=== PATIENT | female | born 1935 | race Caucasian/White ===

== ENCOUNTER 2017-01-04 08:49 | Outpatient (CLI) | payer MEDICARE, BC | END 2017-01-04 08:50 | disposition home or self-care (01) | DX: E78.2 Mixed hyperlipidemia (principal); R94.5 Abnormal results of liver function studies ==

== ENCOUNTER 2017-02-27 22:01 | Outpatient (CLI) | payer MEDICARE, BC | END 2017-02-27 22:02 | disposition home or self-care (01) | DX: E78.2 Mixed hyperlipidemia (principal); Z79.899 Other long term (current) drug therapy ==

== ENCOUNTER 2017-03-15 23:51 | Emergency (ER) | payer MEDICARE, BC ==
[2017-03-16] MEDS ORDERED: LIDOCAINE VISCOUS 2% 15 ML UDC MM STA (00:14)
[2017-03-16] MEDS ORDERED: MAG HYDROX/AL HYDROX/SIMETH 30 ML UDC PO STA (00:14)
[2017-03-16] MEDS ORDERED: MAG HYDROX/AL HYDROX/SIMETH 30 ML UDC ONE (00:17)
[2017-03-16] MEDS ORDERED: LIDOCAINE VISCOUS 2% 15 ML UDC MM ONE (00:17)
[2017-03-16 00:32] LABS: BASOPHILS # (AUTO) 0.1 10^3/uL (0.0-0.1); EOSINOPHILS # (AUTO) 0.1 10^3/uL (0.0-0.7); EOSINOPHILS % (AUTO) 2.2 %; HCT - HEMATOCRIT 42.3 % (37.0-47.0); HGB - HEMOGLOBIN 14.1 g/dL (12.0-16.0); LYMPHOCYTES # (AUTO) 1.6 10^3/uL (1.5-3.5); MEAN CORPUSCULAR HEMOGLOBIN 30.8 pg (27.0-31.0); MEAN CORPUSCULAR HGB CONC 33.3 g/dL (32.0-36.0); MEAN CORPUSCULAR VOLUME 92.2 fL (81.0-99.0); MEAN PLATELET VOLUME 8.1 fL (7.9-10.8); MONOCYTES # (AUTO) 0.7 10^3/uL (0.0-1.0); MONOCYTES % (AUTO) 11.6 %; NEUTROPHILS # (AUTO) 3.3 10^3/uL (1.5-6.6); NEUTROPHILS % (AUTO) 57.2 %; NUCLEATED RED BLOOD CELLS AUTO 0.1 /100WBC; RED BLOOD COUNT 4.59 10^6/uL (4.20-5.40); RED CELL DISTRIBUTION WIDTH 12.1 % (12.0-15.0); UNCORRECTED WHITE BLOOD COUNT 5.8 x10^3/uL; WHITE BLOOD COUNT 5.8 x10^3/uL (4.8-10.8)
[2017-03-16 00:39] LABS: BILIRUBIN,URINE NEGATIVE (NEGATIVE); PH,URINE 6.5 PH (5.0-7.5)
[2017-03-16 00:40] LABS: UA w/ MICROSCOPIC CHARGE YES
[2017-03-16 00:41] LABS: PT - PROTHROMBIN TIME 11.8 secs (9.9-12.6)
[2017-03-16 00:44] LABS: ALBUMIN/GLOBULIN RATIO 1.3 (1.0-2.2); BILIRUBIN,TOTAL 0.9 mg/dL (0.2-1.0); CREATININE 0.7 mg/dL (0.4-1.0); POTASSIUM 3.4 mmol/L (3.5-5.0); TOTAL PROTEIN 7.9 g/dL (6.7-8.2)
[2017-03-16 00:48] LABS: PARTIAL THROMBOPLASTIN TIME 27.4 secs (24.9-33.3)
[2017-03-16 00:49] LABS: UR CULTURE IF IND INDICATED; WBC,URINE 0-3 /HPF (0-5)
--- NOTE | 2017-03-16 01:00 | XRAY Preliminary Report ---
Exam: XR Chest 1 View IMPRESSION: 1. Postoperative changes. No acute abnormality seen. [facility] SITE ID: [id number]
--- NOTE | 2017-03-16 01:02 | XRAY Report ---
EXAM: CHEST RADIOGRAPHY EXAM DATE: 03/16/2017 12:43 AM. CLINICAL HISTORY: Chest pain. COMPARISON: 07/15/2016. TECHNIQUE: 1 view. FINDINGS: Lungs/Pleura: No alveolar consolidation or pleural effusion. No pneumothorax. Mediastinum: Heart size is probably normal. Tortuous ectatic atherosclerotic aorta. Other: Median sternotomy and valve replacement. IMPRESSION: 1. Postoperative changes. No acute abnormality seen. [facility] Referring Provider Line: [phone] SITE ID: [id number]
[2017-03-16 02:37] VITALS: BP 137/69
--- NOTE | 2017-03-16 02:48 | ED Physician Documentation ---
PD HPI ABD PAIN - Stated complaint Stated Complaint: R FLANK PX - Chief complaint Chief Complaint: General - History obtained from History obtained from: Patient - History of Present Illness Timing - onset: How many days ago (4) Timing - duration: Days Timing - details: Gradual onset, Waxing and waning Quality: Cramping, Aching Location: LUQ Radiation: Chest Worsened by: Eating, Breathing, Position Associated symptoms: No: Fever, Nausea, Vomiting, Hematemesis, Diarrhea, Constipation Similar symptoms before: Work up / diagnostics, Treatment Recently seen: Not recently seen - Additional information Additional information: Patient is an 81 year old female presenting to the emergency department for abdominal pain. patient states that for the last few days she has had some epigastric pain. it is consistent with her gerd pain. Patient states that tonight it wrapped around to the left side of her abdomen. Patient lives at home alone and became nervous so she came out to the emergency department for evaluation. Upon initial evaluation in the emergency department patient was chest pain free. Review of Systems Constitutional: denies: Fever, Chills Eyes: denies: Loss of vision, Decreased vision Ears: denies: Ear pain, Drainage/discharge Nose: denies: Rhinorrhea / runny nose, Congestion Throat: denies: Dental pain / toothache, Oral lesions / sores Cardiac: reports: Chest pain / pressure. denies: Palpitations, Calf pain Respiratory: denies: Dyspnea, Cough, Wheezing GI: reports: Abdominal Pain. denies: Abdominal Swelling, Nausea, Vomiting, Constipation : denies: Dysuria, Frequency, Hesitancy Skin: denies: Rash, Lesions, Abrasion (s) Musculoskeletal: denies: Neck pain, Back pain, Extremity pain, Joint pain Neurologic: denies: Generalized weakness, Focal weakness, Numbness, Syncope, LOC Psychiatric: reports: Anxiety. 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 Cardiovascular: Valve replacement - Present Medications Home Medications: Ambulatory Orders Medication Instructions Recorded Confirmed Aspirin [Children's Aspirin] 81 mg PO DAILY 08/15/13 07/15/16 Atorvastatin Calcium [Lipitor] 40 mg PO DAILY 08/15/13 07/15/16 Calcium Carb, Citrate/Vit D3 1 each PO QID 08/15/13 07/15/16 [Citracal + D ER Tablet] Cholecalciferol (Vitamin D3) 400 unit PO TID 08/15/13 07/15/16 [Vitamin D-3] Metoprolol Tartrate [Lopressor] 25 mg PO BID 08/15/13 07/15/16 Multivitamin [Multivitamins] 1 each PO DAILY 08/15/13 07/15/16 hydroCHLOROthiazide [Hydrodiuril] 12.5 mg PO DAILY 08/15/13 07/15/16 Sulfamethoxazole/Trimethoprim 1 each PO BID #10 tablet 07/16/16 [Sulfamethoxazole-Tmp Ds Tablet] - Allergies Allergies/Adverse Reactions: Allergies Allergy/AdvReac Type Severity Reaction Status Date / Time losartan [Losartan] Allergy Intermediate cough Verified 07/15/16 22:58 Estrogens Allergy Mild Diaphoresis Verified 07/15/16 22:58 felodipine Allergy Mild Respiratory Verified 07/15/16 22:58 lisinopril Allergy Mild Respiratory Verified 07/15/16 22:58 - Social History Does the pt smoke?: No Smoking Status: Never smoker Does the pt drink ETOH?: Yes Does the pt have substance abuse?: No - Immunizations Immunizations are current?: Yes - POLST Patient has POLST: Yes PD ED PE NORMAL - General General: Alert and oriented X 3, No acute distress - HEENT HEENT: Atraumatic, PERRL, Pharynx benign - Neck Neck: Supple, no meningeal sign, No JVD - Cardiac Cardiac: RRR, No murmur - Respiratory Respiratory: No respiratory distress, Clear bilaterally - Derm Derm: Normal color, Warm and dry, No rash - Extremities Extremities: No deformity, No tenderness to palpate, Normal ROM s pain, No edema , No calf tenderness / cord - Neuro Neuro: Alert and oriented X 3, No motor deficit, No sensory deficit PD ED PE EXPANDED - General General: Anxious - Abdomen Abdomen: Tender to palpation, Epigastric. No: Rebound, Guarding Results - Vitals Vitals: Vital Signs - 24 hr 03/16/17 03/16/17 03/16/17 00:00 00:44 02:36 Temperature 36.2 C L Heart Rate 69 66 60 Respiratory 16 16 20 Rate Blood Pressure 147/62 H 150/73 H 137/69 H O2 Saturation 99 96 99 Oxygen O2 Source Room air - EKG (time done) 0017 Rate: Rate (enter#) (71) Rhythm: NSR [place]: Normal Intervals: Normal [place] Compare to prior EKG: Unchanged from prior EKG - Labs Labs: Laboratory Tests 03/16/17 03/16/17 03/16/17 00:20 00:20 00:20 WBC 5.8 RBC 4.59 Hgb 14.1 Hct 42.3 MCV 92.2 MCH 30.8 MCHC 33.3 RDW 12.1 Plt Count 306 MPV 8.1 Neut # 3.3 Lymph # 1.6 [place] # 0.7 Eos # 0.1 Baso # 0.1 Absolute Nucleated RBC 0.01 Nucleated RBCs 0.1 PT 11.8 INR 1.0 APTT 27.4 Sodium 132 L Potassium 3.4 L Chloride 96 L Carbon Dioxide 25 Anion Gap 11.0 BUN 14 Creatinine 0.7 Estimated GFR (MDRD) 80 L Glucose 120 H Calcium 10.0 Total Bilirubin 0.9 AST 56 H ALT 50 Alkaline Phosphatase 73 Troponin I Total Protein 7.9 Albumin 4.5 Globulin 3.4 Albumin/Globulin Ratio 1.3 Lipase 33 Urine Color Urine Clarity Urine pH Ur Specific [place] Urine Protein Urine Glucose (UA) Urine Ketones Urine Occult Blood Urine Nitrite Urine Bilirubin Urine Urobilinogen Ur Leukocyte Esterase Urine RBC Urine WBC Ur Squamous Epith Cells Urine Bacteria Urine Casts Ur Microscopic Review Urine Culture Comments 03/16/17 03/16/17 03/16/17 00:20 00:24 02:00 WBC RBC Hgb Hct MCV MCH MCHC RDW Plt Count MPV Neut # Lymph # [place] # Eos # Baso # Absolute Nucleated RBC Nucleated RBCs PT INR APTT Sodium Potassium Chloride Carbon Dioxide Anion Gap BUN Creatinine Estimated GFR (MDRD) Glucose Calcium Total Bilirubin AST ALT Alkaline Phosphatase Troponin I < 0.04 < 0.04 Total Protein Albumin Globulin Albumin/Globulin Ratio Lipase Urine Color YELLOW Urine Clarity CLEAR Urine pH 6.5 Ur Specific [place] 1.010 Urine Protein NEGATIVE Urine Glucose (UA) NEGATIVE Urine Ketones NEGATIVE Urine Occult Blood TRACE-INTA Urine Nitrite NEGATIVE Urine Bilirubin NEGATIVE Urine Urobilinogen 0.2 (NORMAL) Ur Leukocyte Esterase TRACE H Urine RBC 0-5 Urine WBC 0-3 Ur Squamous Epith Cells FEW Squamous Urine Bacteria Few Urine Casts 3-5 Hyaline Casts Ur Microscopic Review INDICATED Urine Culture Comments INDICATED - Rads (name of study) chest x-ray Radiology: Final report received (post operative changes, no acute abnormality seen) PD MEDICAL DECISION MAKING - ED course Complexity details: reviewed old records, reviewed results, re-evaluated patient , considered differential, d/w patient ED course: Patient wsa seen and examined at bedside. patient was a little anxious but otherwise was well appearing. ekg was performed and was the same as previous ekg. labs were drawn and urine was collected. chest x-ray was performed and showed no acute findings. Patient's diagnostics remained unchanged from her baseline. Patient's second troponin remained negative. patient's pain was less likely cardiac in nature. patient had a follow up appointment in the morning. Patient required no further work up at thist time and was stable for discharge with outpatient follow up. Departure - Departure Disposition: 01 Home, Self Care Clinical Impression: GERD (gastroesophageal reflux disease) Condition: Good Instructions: ED GERD Follow-Up: Víctor Rios MD [Primary Care Provider] - Tomorrow Comments: Your diagnostics today were within normal limits. this indicates that it is less likely to be your heart. that being said it is only a snap shot in time. You should call your doctor today and let them know you were in the emergency department. You may required a follow up stress test. You should return to the emergency department for chest pain, shortness of breath, new worsening or uncontrollable symptoms. Discharge Date/Time: 03/16/17 03:01
== END 2017-03-16 03:01 | disposition home or self-care (01) ==
LOC: ED 23:51
DX: K21.9 Gastro-esophageal reflux disease without esophagitis (principal); I10 Essential (primary) hypertension; E78.00 Pure hypercholesterolemia, unspecified; Z79.82 Long term (current) use of aspirin
CPT/HCPCS: 36415; 71010; 80053; 81001; 83690; 84484; 85025; 85610; 85730; 87086; 93005; 93010; 99283; 99284; A9270; 81003

== ENCOUNTER 2017-04-23 16:46 | Outpatient (CLI) | payer MEDICARE, BC ==
--- NOTE | 2017-04-24 11:15 | XRAY Report ---
TWO-VIEW LEFT FEMUR: 04/23/2017 CLINICAL INDICATION: Pain. FINDINGS: Frontal and lateral views of the left femur demonstrate no evidence of fracture. Mild ost eoarthritis is noted in the hip and knee. Vascular calcifications are noted. IMPRESSION: MILD OSTEOARTHRITIS. NO EVIDENCE OF FRACTURE. JOB #: [id number] EXT JOB #:[id number]
== END 2017-04-23 16:47 | disposition home or self-care (01) ==
LOC: DI 16:46
PROVIDERS: ATTEND Internal Medicine
DX: M89.8X5 Other specified disorders of bone, thigh (principal); M16.12 Unilateral primary osteoarthritis, left hip; M17.12 Unilateral primary osteoarthritis, left knee

== ENCOUNTER 2017-07-03 11:13 | Outpatient (CLI) | payer MEDICARE, BC ==
[2017-07-03 13:39] LABS: BASOPHILS # (AUTO) 0.1 10^3/uL (0.0-0.1); BASOPHILS % (AUTO) 1.1 %; EOSINOPHILS % (AUTO) 0.5 %; HCT - HEMATOCRIT 38.6 % (37.0-47.0); HGB - HEMOGLOBIN 13.3 g/dL (12.0-16.0); LYMPHOCYTES # (AUTO) 1.3 10^3/uL (1.5-3.5); LYMPHOCYTES % (AUTO) 25.5 %; MEAN CORPUSCULAR HEMOGLOBIN 32.4 pg (27.0-31.0); MEAN CORPUSCULAR HGB CONC 34.5 g/dL (32.0-36.0); MEAN CORPUSCULAR VOLUME 93.9 fL (81.0-99.0); MEAN PLATELET VOLUME 8.7 fL (7.9-10.8); MONOCYTES # (AUTO) 0.4 10^3/uL (0.0-1.0); MONOCYTES % (AUTO) 8.4 %; NEUTROPHILS # (AUTO) 3.3 10^3/uL (1.5-6.6); NEUTROPHILS % (AUTO) 64.5 %; RED BLOOD COUNT 4.11 10^6/uL (4.20-5.40); UNCORRECTED WHITE BLOOD COUNT 5.1 x10^3/uL; WHITE BLOOD COUNT 5.1 x10^3/uL (4.8-10.8)
[2017-07-03 14:04] LABS: ALBUMIN/GLOBULIN RATIO 1.2 (1.0-2.2); BILIRUBIN,TOTAL 0.8 mg/dL (0.2-1.0); BUN - BLOOD UREA NITROGEN 11 mg/dL (6-20); CARBON DIOXIDE - CO2 24 mmol/L (21-32); CHLORIDE 96 mmol/L (101-111); CREATININE 0.7 mg/dL (0.4-1.0); GFR - MDRD 80 (>89); GLUCOSE 99 mg/dL (70-100); LDL CHOLESTEROL,DIRECT 70 mg/dL; POTASSIUM 3.5 mmol/L (3.5-5.0); SODIUM 132 mmol/L (135-145); TOTAL PROTEIN 7.6 g/dL (6.7-8.2)
== END 2017-07-03 11:14 | disposition home or self-care (01) ==
LOC: LAB.R 11:13
PROVIDERS: ATTEND Internal Medicine
DX: G45.9 Transient cerebral ischemic attack, unspecified (principal); E78.5 Hyperlipidemia, unspecified
CPT/HCPCS: 80053; 85025; 85651; 86140

== ENCOUNTER 2017-07-06 08:51 | Outpatient (CLI) | payer MEDICARE, BC | END 2017-07-06 08:52 | disposition critical access hospital (66) | LOC: EMS 08:51 | PROVIDERS: ATTEND Surgery | DX: M79.602 Pain in left arm (principal); R06.02 Shortness of breath; F41.9 Anxiety disorder, unspecified | CPT/HCPCS: A0425; A0427 ==

== ENCOUNTER 2017-07-06 09:02 | Emergency (ER) | payer MEDICARE, BC ==
--- NOTE | 2017-07-06 09:34 | ED Physician Documentation ---
PD HPI CHEST PAIN - Stated complaint Stated Complaint: LEFT ARM PAIN - Chief complaint Chief Complaint: Cardiac - History obtained from History obtained from: Patient - History of Present Illness Timing - onset: Last night Timing - onset during: Rest Timing - details: Now resolved Quality: Aching (left arm and back) Associated symptoms: No: Shortness of air, Diaphoresis, Nausea, Vomiting Recently seen: Clinic - Treatment prior to arrival Treatment prior to arrival: 4 baby aspirin - Additional information Additional information: The patient is an 82-year-old female who arrives via ambulance after she developed aching in her left arm this morning while in bed. She reports having similar aching in her left arm and back last night while doing light housework. She took 2 sublingual nitroglycerin and states that helped. She denies associated shortness of breath, nausea or vomiting. She reports having a similar aching in her left arm this morning, so called 911. She took 4 baby aspirin, and denies symptoms at the time of arrival in the emergency department. She denies having any chest pain or discomfort during these episodes. She admits to being anxious about the possibility of coronary artery disease, because her father of an CO at age 59. She was seen by her primary physician 2 days ago, and because of symptoms that suggested possible TIA, she was scheduled for cardiac echo and carotid duplex scan, which were scheduled for this morning. Review of Systems Constitutional: denies: Fever, Fatigue Ears: denies: Tinnitus/ringing Nose: denies: Congestion Throat: denies: Sore throat Cardiac: reports: Other (Dull aching of her left arm, radiating to her back.). denies: Chest pain / pressure, Palpitations Respiratory: denies: Dyspnea, Cough GI: denies: Abdominal Pain, Nausea, Vomiting : denies: Dysuria Skin: denies: Rash Musculoskeletal: denies: Neck pain, Extremity swelling Neurologic: denies: Focal weakness, Numbness, Headache PD PAST MEDICAL HISTORY - Past Medical History Cardiovascular: Hypertension, High cholesterol, Arrhythmia, Valve disorder Respiratory: None Endocrine/Autoimmune: None GI: GERD : None HEENT: None Psych: Anxiety Musculoskeletal: Fatigue Derm: None - Past Surgical History Past Surgical History: Yes General: Appendectomy, Hiatal hernia repair /CARD HAND: Oophrectomy Cardiovascular: Valve replacement - Present Medications Home Medications: Ambulatory Orders Medication Instructions Recorded Confirmed Aspirin [Children's Aspirin] 81 mg PO DAILY 08/15/13 07/06/17 Atorvastatin Calcium [Lipitor] 20 mg PO DAILY 08/15/13 07/06/17 Cholecalciferol (Vitamin D3) 400 unit PO TID 08/15/13 07/06/17 [Vitamin D-3] Metoprolol Tartrate [Lopressor] 25 mg PO BID 08/15/13 07/06/17 Multivitamin [Multivitamins] 1 each PO DAILY 08/15/13 07/06/17 hydroCHLOROthiazide [Hydrodiuril] 12.5 mg PO DAILY 08/15/13 07/06/17 - Allergies Allergies/Adverse Reactions: Allergies Allergy/AdvReac Type Severity Reaction Status Date / Time losartan [Losartan] Allergy Intermediate cough Verified 07/06/17 09:13 Estrogens Allergy Mild Diaphoresis Verified 07/06/17 09:13 felodipine Allergy Mild Respiratory Verified 07/06/17 09:13 lisinopril Allergy Mild Respiratory Verified 07/06/17 09:13 - Social History Does the pt smoke?: No Smoking Status: Never smoker Does the pt drink ETOH?: Yes Does the pt have substance abuse?: No - Immunizations Immunizations are current?: Yes - POLST Patient has POLST: Yes PD ED PE NORMAL - Vitals Vital signs reviewed: Yes (systolic hypertension initially.) - General General: Alert and oriented X 3, Well developed/nourished - HEENT HEENT: Atraumatic, EOMI, Pharynx benign - Neck Neck: No adenopathy, No JVD - Cardiac Cardiac: RRR, No murmur - Respiratory Respiratory: No respiratory distress, Clear bilaterally, Other (no chest wall tenderness to palpation.) - Abdomen Abdomen: Soft, Non tender - Back Back: No CVA TTP - Derm Derm: No rash - Extremities Extremities: No edema, No calf tenderness / cord - Neuro Neuro: Alert and oriented X 3, No motor deficit, No sensory deficit, Normal speech Results - Vitals Vitals: Oxygen O2 Source Room air - EKG (time done) 09:20 Rate: Rate (enter#) (65) Rhythm: NSR [place]: Normal Intervals: Normal [place] QRS: Normal Ischemia: Normal ST segments Compare to prior EKG: Unchanged from prior EKG Computer interpretation: Agree with computer - Labs Labs: Laboratory Tests 07/06/17 07/06/1707/06/17 09:50 09:50 09:50 WBC 4.9 RBC 4.12 L Hgb 13.0 Hct 37.7 MCV 91.7 MCH 31.6 H MCHC 34.4 RDW 12.4 Plt Count 278 MPV 7.9 Neut # 3.3 Lymph # 1.1 L [place] # 0.4 Eos # 0.0 Baso # 0.0 Absolute Nucleated RBC 0.00 Nucleated RBCs 0.0 Sodium 132 L Potassium 3.5 Chloride 95 L Carbon Dioxide 28 Anion Gap 9.0 BUN 11 Creatinine 0.6 Estimated GFR (MDRD) 96 Glucose 110 H Calcium 9.8 Total Bilirubin 0.7 AST 39 ALT 28 Alkaline Phosphatase 62 Troponin I < 0.04 Total Protein 7.6 Albumin 4.3 Globulin 3.3 Albumin/Globulin Ratio 1.3 Lipase 35 Urine Color Urine Clarity Urine pH Ur Specific [place] Urine Protein Urine Glucose (UA) Urine Ketones Urine Occult Blood Urine Nitrite Urine Bilirubin Urine Urobilinogen Ur Leukocyte Esterase Ur Microscopic Review Urine Culture Comments 07/06/17 11:00 WBC RBC Hgb Hct MCV MCH MCHC RDW Plt Count MPV Neut # Lymph # [place] # Eos # Baso # Absolute Nucleated RBC Nucleated RBCs Sodium Potassium Chloride Carbon Dioxide Anion Gap BUN Creatinine Estimated GFR (MDRD) Glucose Calcium Total Bilirubin AST ALT Alkaline Phosphatase Troponin I Total Protein Albumin Globulin Albumin/Globulin Ratio Lipase Urine Color YELLOW Urine Clarity CLEAR Urine pH 7.0 Ur Specific [place] 1.010 Urine Protein NEGATIVE Urine Glucose (UA) NEGATIVE Urine Ketones 15 H Urine Occult Blood NEGATIVE Urine Nitrite NEGATIVE Urine Bilirubin NEGATIVE Urine Urobilinogen 0.2 (NORMAL) Ur Leukocyte Esterase NEGATIVE Ur Microscopic Review NOT INDICATED Urine Culture Comments NOT INDICATED - Rads (name of study) Portable CXR Radiology: Prelim report reviewed, EMP read contemporaneously, See rad report ( Mild pulmonary vascular congestion. No focal pulmonary consolidation.) PD MEDICAL DECISION MAKING - ED course Complexity details: reviewed old records, reviewed results, re-evaluated patient , considered differential, d/w patient ED course: The patient's presentation is atypical for cardiac etiology for her left arm aching. I suspect anxiety is a significant factor in the patient's response to the vague symptoms. Her EKG reveals no ischemic abnormalities, and her cardiac enzymes are negative. She was scheduled for outpatient cardiac echo and carotid duplex scan this morning. She has missed the scheduled appointment for the cardiac echo, but is still able to make the appointment for the carotid duplex scan. She wishes to proceed with discharge in order to make her outpatient appointment. I discussed with her the importance of follow-up with her primary physician, as well as potentially worrisome signs or symptoms that should prompt reevaluation in the emergency department. Departure - Departure Disposition: 01 Home, Self Care Clinical Impression: Anxiety Chest pain Qualifiers: Chest pain type: unspecified Qualified Code(s): R07.9 - Chest pain, unspecified Condition: Stable Instructions: ED Chest Pain Atypical Unkn Cause, ED Stress React Follow-Up: Víctor Rios MD [Primary Care Provider] - Comments: Go directly to the credit front office developer at radiology so you can get the carotid Doppler study as scheduled today. Follow-up with Dr. Rios within 1 week. Call to schedule appointment. Return to the emergency department if you develop recurrent or increasing chest pain, shortness of breath, or otherwise worsening symptoms. Discharge Date/Time: 07/06/17 11:10
[2017-07-06 09:57] LABS: BASOPHILS % (AUTO) 0.8 %; EOSINOPHILS % (AUTO) 0.5 %; HCT - HEMATOCRIT 37.7 % (37.0-47.0); LYMPHOCYTES # (AUTO) 1.1 10^3/uL (1.5-3.5); LYMPHOCYTES % (AUTO) 23.2 %; MEAN CORPUSCULAR HEMOGLOBIN 31.6 pg (27.0-31.0); MEAN CORPUSCULAR HGB CONC 34.4 g/dL (32.0-36.0); MEAN CORPUSCULAR VOLUME 91.7 fL (81.0-99.0); MEAN PLATELET VOLUME 7.9 fL (7.9-10.8); MONOCYTES # (AUTO) 0.4 10^3/uL (0.0-1.0); NEUTROPHILS # (AUTO) 3.3 10^3/uL (1.5-6.6); NEUTROPHILS % (AUTO) 66.5 %; RED BLOOD COUNT 4.12 10^6/uL (4.20-5.40); RED CELL DISTRIBUTION WIDTH 12.4 % (12.0-15.0); UNCORRECTED WHITE BLOOD COUNT 4.9 x10^3/uL; WHITE BLOOD COUNT 4.9 x10^3/uL (4.8-10.8)
--- NOTE | 2017-07-06 10:06 | XRAY Preliminary Report ---
Exam: XR Chest 1 View IMPRESSION: Mild pulmonary vascular congestion. No focal pulmonary consolidation. [facility] SITE ID: [id number]
--- NOTE | 2017-07-06 10:08 | XRAY Report ---
EXAM: CHEST RADIOGRAPHY EXAM DATE: 07/06/2017 09:54 AM. CLINICAL HISTORY: Chest pain. COMPARISON: 03/16/2017. TECHNIQUE: 1 view. FINDINGS: Lungs/Pleura: No focal consolidation. No pleural effusion or pneumothorax. Mild pulmonary vascular co ngestion. Mediastinum: Within exam limitations, cardiomediastinal contour is normal. Aortic atherosclerosis. Other: Status post median sternotomy. IMPRESSION: Mild pulmonary vascular congestion. No focal pulmonary consolidation. [facility] Referring Provider Line: [phone] SITE ID: [id number]
[2017-07-06 10:17] LABS: ALBUMIN/GLOBULIN RATIO 1.3 (1.0-2.2); BILIRUBIN,TOTAL 0.7 mg/dL (0.2-1.0); CALCIUM 9.8 mg/dL (8.5-10.3); CREATININE 0.6 mg/dL (0.4-1.0); POTASSIUM 3.5 mmol/L (3.5-5.0); TOTAL PROTEIN 7.6 g/dL (6.7-8.2)
[2017-07-06 11:21] LABS: BILIRUBIN,URINE NEGATIVE (NEGATIVE)
[2017-07-06 11:27] LABS: UA CHARGE (STRIP ONLY) YES; UR CULTURE IF IND NOT INDICATED
[2017-07-06 11:30] VITALS: BP 127/59
== END 2017-07-06 11:10 | disposition home or self-care (01) ==
LOC: EDUNIT# → ED 09:02
DX: F41.9 Anxiety disorder, unspecified (principal); R07.9 Chest pain, unspecified; G45.9 Transient cerebral ischemic attack, unspecified; I10 Essential (primary) hypertension; Z95.2 Presence of prosthetic heart valve; Z79.82 Long term (current) use of aspirin
CPT/HCPCS: 36415; 71010; 80053; 81001; 81003; 83690; 84484; 85025; 87086; 93005; 93306; 93880; 99284

== ENCOUNTER 2017-07-06 11:15 | Outpatient (CLI) | payer MEDICARE, BC ==
--- NOTE | 2017-07-06 14:51 | Ultrasound Report ---
CAROTID DUPLEX: 07/06/2017 CLINICAL INDICATION: TIA. TECHNIQUE: Real-time sonographic vascular imaging was performed by the redevelopment specialist through the carotid arteries utilizing both color-flow and Doppler spectral analysis. Multiple business representative static images were saved for review. Vessel PSV cm/sec 2D Plaque Estimate % EDV cm/sec ICA/CCA PSV % Stenosis RCCA Prox 82.9 -- RCCA Dist 82.9 19 RECA 93 -- RT BULB 81 -- 16 0.97 ZAC Prox 87 -- 15 1.04 ZAC Mid 79 -- 12 0.95 ZAC Dist 73 -- 19 0.87 RVA 42 RVA flow direction: Antegrade. Vessel PSV cm/sec 2D Plaque Estimate % EDV cm/sec ICA/CCA PSV % Stenosis LCCA Prox 67 -- LCCA Dist 78 19 LECA 72 -- LFT BULB 80 -- 17 1.02 LICA Prox 67 -- 17 0.85 LICA Mid 53 -- 16 0.67 LICA Dist 90 -- 27 1.15 LVA 38 LVA flow direction: Antegrade. Velocity criteria are extrapolated from diameter data as defined by the Society of Radiologists in Ultrasound Consensus Conference Radiology 2003; 229; 340-346. Degree of Stenosis % ICA PSV cm/sec Plaque Estimate % ICA/CCA RSV Ratio ICA EDV cm/sec Normal < 125 None < 2.0 < 40 <50 < 125 < 50 < 2.0 < 40 50-69 125 - 130 >/= 50 2.0 - 4.0 40 - 100 >/= 70 but less than near occlusion > 230 >/= 50 > 4.0 > 100 Near occlusion High, low, or undetectable Visible lumen Variable Variable Total occlusion Undetectable No detectable lumen Not applicable Not applicable FINDINGS RIGHT: There is mild calcified plaquing in the right carotid bifurcation, without evidence of a focal hemodynamically significant stenosis. LEFT: There is mild calcified plaquing in the left carotid bifurcation, without evidence of a focal hemodynamically significant stenosis. The vertebral arteries demonstrate antegrade flow bilaterally. IMPRESSION: NO EVIDENCE OF A HEMODYNAMICALLY SIGNIFICANT CAROTID STENOSIS. MTDD
== END 2017-07-06 11:16 | disposition home or self-care (01) ==
LOC: DI 11:15
PROVIDERS: ATTEND Internal Medicine
DX: G45.9 Transient cerebral ischemic attack, unspecified (principal); I51.7 Cardiomegaly; Z95.3 Presence of xenogenic heart valve
CPT/HCPCS: 93306; 93880

== ENCOUNTER 2017-09-14 15:24 | Outpatient (CLI) | payer MEDICARE, BC ==
--- NOTE | 2017-09-14 16:29 | XRAY Preliminary Report ---
Exam: XR SHOULDER 2 VIEW RT IMPRESSION: 1. 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 2. Otherwise, unremarkable exam. [facility] SITE ID: [id number]
--- NOTE | 2017-09-14 16:44 | XRAY Report ---
EXAM: RIGHT SHOULDER RADIOGRAPHY EXAM DATE: 09/14/2017 03:58 PM. CLINICAL HISTORY: Right shoulder pain for weeks, no precipitating injury. COMPARISON: None. TECHNIQUE: 2 views. FINDINGS: Bones: Old ununited fracture extending obliquely through the distal 2 cm of the right clavicle. No acute trabecular or cortical disruption. Joints: 6 mm elevation epicenter right clavicle relative to the acromion. No bony reactive changes at the AC joint. Soft tissues: Pleural scarring right lateral chest wall. IMPRESSION: 1. 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 2. Otherwise, unremarkable exam. [facility] Referring Provider Line: [phone] SITE ID: [id number]
== END 2017-09-14 15:25 | disposition home or self-care (01) ==
LOC: DI 15:24
PROVIDERS: ATTEND Nurse Practitioner Primary Care
DX: S43.101A Unspecified dislocation of right acromioclavicular joint, initial encounter (principal)

== ENCOUNTER 2017-11-02 12:48 | Outpatient (CLI) | payer MEDICARE, BC ==
[2017-11-02 13:07] LABS: BASOPHILS # (AUTO) 0.1 10^3/uL (0.0-0.1); EOSINOPHILS # (AUTO) 0.1 10^3/uL (0.0-0.7); EOSINOPHILS % (AUTO) 2.1 %; HGB - HEMOGLOBIN 13.1 g/dL (12.0-16.0); LYMPHOCYTES # (AUTO) 1.4 10^3/uL (1.5-3.5); LYMPHOCYTES % (AUTO) 25.9 %; MEAN CORPUSCULAR HEMOGLOBIN 32.1 pg (27.0-31.0); MEAN CORPUSCULAR HGB CONC 34.5 g/dL (32.0-36.0); MEAN CORPUSCULAR VOLUME 93.2 fL (81.0-99.0); MEAN PLATELET VOLUME 7.7 fL (7.9-10.8); MONOCYTES # (AUTO) 0.5 10^3/uL (0.0-1.0); NEUTROPHILS # (AUTO) 3.4 10^3/uL (1.5-6.6); PLT - PLATELET COUNT 290 10^3/uL (130-450); RED BLOOD COUNT 4.08 10^6/uL (4.20-5.40); RED CELL DISTRIBUTION WIDTH 12.6 % (12.0-15.0); WHITE BLOOD COUNT 5.6 x10^3/uL (4.8-10.8)
[2017-11-02 13:24] LABS: HB2 TOTAL 14.2 g/dL; HEMOGLOBIN A1C 0.59 g/dL
[2017-11-02 13:27] LABS: ALBUMIN 4.5 g/dL (3.2-5.5); ALBUMIN/GLOBULIN RATIO 1.3 (1.0-2.2); ALKALINE PHOSPHATASE 69 IU/L (42-121); ALT ALANINE AMINOTRANSFERASE 25 IU/L (10-60); AST ASPARTATE AMINOTRANSFERASE 37 IU/L (10-42); BILIRUBIN,TOTAL 0.7 mg/dL (0.2-1.0); BUN - BLOOD UREA NITROGEN 11 mg/dL (6-20); CALCIUM 9.9 mg/dL (8.5-10.3); CARBON DIOXIDE - CO2 26 mmol/L (21-32); CHLORIDE 96 mmol/L (101-111); CHOL/HDL RATIO 1.8 (<4.4); CHOLESTEROL 185 mg/dL; CREATININE 0.7 mg/dL (0.4-1.0); GFR - MDRD 80 (>89); GLUCOSE 114 mg/dL (70-100); HDL CHOLESTEROL 103 mg/dL; LDL CHOLESTEROL,CALCULATED 68 mg/dL; LDL/HDL RATIO 0.7 (<4.4); SODIUM 134 mmol/L (135-145); TOTAL PROTEIN 7.9 g/dL (6.7-8.2); VLDL CHOLESTEROL 14 mg/dL
== END 2017-11-02 12:49 | disposition home or self-care (01) ==
LOC: LAB 12:48
PROVIDERS: ATTEND Internal Medicine
DX: R73.9 Hyperglycemia, unspecified (principal); G45.9 Transient cerebral ischemic attack, unspecified; I25.10 Atherosclerotic heart disease of native coronary artery without angina pectoris; E78.5 Hyperlipidemia, unspecified; I10 Essential (primary) hypertension
CPT/HCPCS: 36415; 80053; 80061; 83036; 85025

== ENCOUNTER 2018-07-09 01:34 | Emergency (ER) | payer MEDICARE, BC ==
--- NOTE | 2018-07-09 05:10 | CT Report ---
Reason: AMS Procedure Date: 07/09/2018 Accession Number: [id number] / [id number] Procedure: CT - Head W/O CPT Code: FULL RESULT: EXAM: CT HEAD EXAM DATE: 07/09/2018 02:27 AM. CLINICAL HISTORY: Altered mental status. COMPARISON: None. TECHNIQUE: Multiaxial CT images were obtained from the foramen magnum to the vertex. Reformats: Sagittal and coronal. IV contrast: None. In accordance with CT protocol optimization, one or more of the following dose reduction techniques were utilized for this exam: automated exposure control, adjustment of mA and/or KV based on patient size, or use of iterative reconstructive technique. FINDINGS: Parenchyma: No intraparenchymal hemorrhage. No evidence of mass, midline shift, or CT findings of acute infarction. Rosas-white differentiation is distinct. Diffuse chronic microangiopathic white matter changes are evident. Extraaxial Spaces: Normal for age. No subdural or epidural collections identified. Ventricles: The ventricles and cortical sulci are enlarged, consistent with age-related tissue loss. Sinuses and orbits: Imaged paranasal sinuses, orbits, and mastoids show no significant abnormality. Bones: No evidence of fracture or calvarial defect. Other: None. IMPRESSION: Generalized age-related cortical atrophic changes without evidence of acute intracranial abnormality. [facility]
--- NOTE | 2018-07-09 05:12 | ED Physician Documentation ---
History of Present Illness - Stated complaint Stated Complaint: MHE - History obtained from History obtained from: Patient, Police - Additonal information Additional information: 83-year-old female was brought in by police for a mental health evaluation. Please report that the patient has had worsening symptoms over the past several months. They report that the patient hallucinates. It is reported that the patient is seen things and they are concerned that she may be a danger to herself. The patient is denying suicidal or homicidal ideations. The patient denies any acute medical complaint. The patient symptoms are described as s evere per the police. No other associated symptoms. No specific triggering factors. Review of Systems Constitutional: denies: Fever Eyes: denies: Loss of vision Ears: denies: Ear pain Nose: denies: Congestion Throat: denies: Sore throat Cardiac: denies: Chest pain / pressure Respiratory: denies: Cough GI: denies: Abdominal Pain : denies: Dysuria Skin: denies: Rash Musculoskeletal: denies: Neck pain Neurologic: denies: Generalized weakness Psychiatric: reports: Hallucinations. 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 Cardiovascular: Valve replacement - Present Medications Home Medications: Ambulatory Orders Medication Instructions Recorded Confirmed Aspirin [Children's Aspirin] 81 mg PO DAILY 08/15/13 07/06/17 Atorvastatin Calcium [Lipitor] 20 mg PO DAILY 08/15/13 07/06/17 Cholecalciferol (Vitamin D3) 400 unit PO TID 08/15/13 07/06/17 [Vitamin D-3] Metoprolol Tartrate [Lopressor] 25 mg PO BID 08/15/13 07/06/17 Multivitamin [Multivitamins] 1 each PO DAILY 08/15/13 07/06/17 hydroCHLOROthiazide [Hydrodiuril] 12.5 mg PO DAILY 08/15/13 07/06/17 - Allergies Allergies/Adverse Reactions: Allergies Allergy/AdvReac Type Severity Reaction Status Date / Time losartan [Losartan] Allergy Intermediate cough Verified 07/09/18 05:40 Estrogens Allergy Mild Diaphoresis Verified 07/09/18 05:40 felodipine Allergy Mild Respiratory Verified 07/09/18 05:40 lisinopril Allergy Mild Respiratory Verified 07/09/18 05:40 - Social History Does the pt smoke?: No Smoking Status: Never smoker Does the pt drink ETOH?: Yes Does the pt have substance abuse?: No - Immunizations Immunizations are current?: Yes - POLST Patient has POLST: Yes PD ED PE NORMAL - General General: Other (The patient's alert, the patient ambulated into the emergency department on her own accord. The patient appears well-hydrated, nontoxic and is in no acute distress) - HEENT HEENT: Atraumatic, PERRL, EOMI, Ears normal - Cardiac Cardiac: RRR, Strong equal pulses - Respiratory Respiratory: No respiratory distress - Abdomen Abdomen: Soft - Derm Derm: Normal color - Neuro Neuro: Other (The patient is alert, the patient ambulates without difficulty, the patient moves all 4 extremities and has no gross focal neurologic abnormality) PD ED PE EXPANDED - Psych Psych: Auditory hallucinations, Visual hallucinations. No: Suicidal Results - Vitals Vitals: Vital Signs - 24 hr 07/09/18 01:35 Temperature 37.1 C Heart Rate 76 Respiratory 17 Rate Blood Pressure 164/79 H O2 Saturation 98 Oxygen O2 Source Room air - Labs Labs: Laboratory Tests 07/09/18 07/09/18 07/09/18 02:43 02:43 02:43 WBC 6.5 RBC 4.07 L Hgb 13.0 Hct 38.1 MCV 93.5 MCH 31.8 H MCHC 34.0 RDW 12.4 Plt Count 320 MPV 7.8 L Neut # (Auto) 4.7 Lymph # (Auto) 1.2 L [place] # (Auto) 0.5 Eos # (Auto) 0.1 Baso # (Auto) 0.1 Absolute Nucleated RBC 0.00 Nucleated RBC % 0.1 Sodium 134 L Potassium 3.3 L Chloride 98 L Carbon Dioxide 26 Anion Gap 10.0 BUN 12 Creatinine 0.7 Estimated GFR (MDRD) 80 L Glucose 124 H Calcium 9.8 Total Bilirubin 0.8 AST 31 ALT 22 Alkaline Phosphatase 58 Ammonia Troponin I < 0.04 Total Protein 7.5 Albumin 4.2 Globulin 3.3 Albumin/Globulin Ratio 1.3 Lipase 40 Urine Color Urine Clarity Urine pH Ur Specific [place] Urine Protein Urine Glucose (UA) Urine Ketones Urine Occult Blood Urine Nitrite Urine Bilirubin Urine Urobilinogen Ur Leukocyte Esterase Urine RBC Urine WBC Ur Squamous Epith Cells Urine Bacteria Urine Casts Ur Microscopic Review Urine Opiates Screen Ur Oxycodone Screen Urine Methadone Screen Ur Propoxyphene Screen Ur Barbiturates Screen Ur Tricyclics Screen Ur Phencyclidine Scrn Ur Amphetamine Screen U Methamphetamines Scrn U Benzodiazepines Scrn Urine Cocaine Screen U Cannabinoids Screen Ethyl Alcohol < 5.0 07/09/18 07/09/18 02:43 02:43 WBC RBC Hgb Hct MCV MCH MCHC RDW Plt Count MPV Neut # (Auto) Lymph # (Auto) [place] # (Auto) Eos # (Auto) Baso # (Auto) Absolute Nucleated RBC Nucleated RBC % Sodium Potassium Chloride Carbon Dioxide Anion Gap BUN Creatinine Estimated GFR (MDRD) Glucose Calcium Total Bilirubin AST ALT Alkaline Phosphatase Ammonia < 10.0 Troponin I Total Protein Albumin Globulin Albumin/Globulin Ratio Lipase Urine Color YELLOW Urine Clarity CLEAR Urine pH 6.5 Ur Specific [place] 1.015 Urine Protein NEGATIVE Urine Glucose (UA) NEGATIVE Urine Ketones NEGATIVE Urine Occult Blood NEGATIVE Urine Nitrite NEGATIVE Urine Bilirubin NEGATIVE Urine Urobilinogen 0.2 (NORMAL) Ur Leukocyte Esterase TRACE H Urine RBC 0-5 Urine WBC 4-5 Ur Squamous Epith Cells MOD Squamous H Urine Bacteria Few Urine Casts 6-10 Hyaline Casts Ur Microscopic Review INDICATED Urine Opiates Screen NEGATIVE Ur Oxycodone Screen NEGATIVE Urine Methadone Screen NEGATIVE Ur Propoxyphene Screen NEGATIVE Ur Barbiturates Screen NEGATIVE Ur Tricyclics Screen NEGATIVE Ur Phencyclidine Scrn NEGATIVE Ur Amphetamine Screen NEGATIVE U Methamphetamines Scrn NEGATIVE U Benzodiazepines Scrn NEGATIVE Urine Cocaine Screen NEGATIVE U Cannabinoids Screen NEGATIVE Ethyl Alcohol - Rads (name of study) CT head Radiology: Final report received PD MEDICAL DECISION MAKING - ED course ED course: 07:00 AM The patient is medically clear and pending and evaluation by social work for her mental health. The patient's care was turned over to the oncoming emergency physician Dr. Giles to follow-up on the recommendations from social work and for final disposition - Sepsis Event Vital Signs: Vital Signs - 24 hr 07/09/18 01:35 Temperature 37.1 C Heart Rate 76 Respiratory 17 Rate Blood Pressure 164/79 H O2 Saturation 98 Oxygen O2 Source Room air
[2018-07-09 05:33] LABS: MUDS CUTOFF CONCENTRATIONS CUTOFF CONC BELOW:
[2018-07-09 05:37] LABS: ALBUMIN 4.2 g/dL (3.2-5.5); ALBUMIN/GLOBULIN RATIO 1.3 (1.0-2.2); ALKALINE PHOSPHATASE 58 IU/L (42-121); ALT ALANINE AMINOTRANSFERASE 22 IU/L (10-60); AST ASPARTATE AMINOTRANSFERASE 31 IU/L (10-42); BILIRUBIN,TOTAL 0.8 mg/dL (0.2-1.0); BUN - BLOOD UREA NITROGEN 12 mg/dL (6-20); CALCIUM 9.8 mg/dL (8.5-10.3); CARBON DIOXIDE - CO2 26 mmol/L (21-32); CHLORIDE 98 mmol/L (101-111); CREATININE 0.7 mg/dL (0.4-1.0); GFR - MDRD 80 (>89); GLUCOSE 124 mg/dL (70-100); LIPASE 40 U/L (22-51); SODIUM 134 mmol/L (135-145); TOTAL PROTEIN 7.5 g/dL (6.7-8.2)
[2018-07-09 05:39] LABS: BILIRUBIN,URINE NEGATIVE (NEGATIVE); CLARITY,URINE CLEAR (CLEAR); GLUCOSE, URINE (UA) NEGATIVE (NEGATIVE); KETONES,URINE (UA) NEGATIVE (NEGATIVE); LEUKOCYTE ESTERASE, URINE TRACE (NEGATIVE); NITRITE,URINE NEGATIVE (NEGATIVE); OCCULT BLOOD,URINE NEGATIVE (NEGATIVE); PH,URINE 6.5 PH (5.0-7.5); PROTEIN,URINE NEGATIVE (NEGATIVE); UROBILINOGEN,URINE 0.2 (NORMAL) E.U./dL (NORMAL)
[2018-07-09 05:40] LABS: AMPHETAMINE SCREEN,URINE NEGATIVE (NEGATIVE); BACTERIA,URINE Few /HPF (None Seen); BENZODIAZEPINES SCREEN, URINE NEGATIVE (NEGATIVE); CASTS, URINE 6-10 Hyaline Casts /LPF; COCAINE SCREEN URINE NEGATIVE (NEGATIVE); METHADONE SCREEN, URINE NEGATIVE (NEGATIVE); METHAMPHETAMINES SCREEN, URINE NEGATIVE (NEGATIVE); OPIATE SCREEN, URINE NEGATIVE (NEGATIVE); OXYCODONE SCREEN, URINE NEGATIVE (NEGATIVE); PROPOXYPHENE SCREEN, URINE NEGATIVE (NEGATIVE); RBC,URINE 0-5 /HPF (0-5); SQUAMOUS EPITHELIAL CELL,UR MOD Squamous (<= Few); TRICYCLIC ANTIDEPRESSANT,URINE NEGATIVE (NEGATIVE)
[2018-07-09 05:42] LABS: BASOPHILS # (AUTO) 0.1 10^3/uL (0.0-0.1); BASOPHILS % (AUTO) 0.9 %; EOSINOPHILS # (AUTO) 0.1 10^3/uL (0.0-0.7); LYMPHOCYTES # (AUTO) 1.2 10^3/uL (1.5-3.5); LYMPHOCYTES % (AUTO) 18.8 %; MEAN CORPUSCULAR HEMOGLOBIN 31.8 pg (27.0-31.0); MEAN CORPUSCULAR VOLUME 93.5 fL (81.0-99.0); MEAN PLATELET VOLUME 7.8 fL (7.9-10.8); MONOCYTES # (AUTO) 0.5 10^3/uL (0.0-1.0); MONOCYTES % (AUTO) 7.4 %; NEUTROPHILS # (AUTO) 4.7 10^3/uL (1.5-6.6); NEUTROPHILS % (AUTO) 71.9 %; PLT - PLATELET COUNT 320 10^3/uL (130-450); RED BLOOD COUNT 4.07 10^6/uL (4.20-5.40); RED CELL DISTRIBUTION WIDTH 12.4 % (12.0-15.0); WHITE BLOOD COUNT 6.5 x10^3/uL (4.8-10.8)
[2018-07-09 07:43] LABS: THYROID STIMULATING HORMONE 1.98 uIU/mL (0.34-5.60)
[2018-07-09] MEDS ORDERED: NITROFURANTOIN MACRO 100 MG CAPSULE PO STA (11:28)
--- NOTE | 2018-07-09 13:00 | ED Physician Documentation ---
ED Addendum - Addendum Addendum: 07/09/18 12:58 Patient has been seen by social work Lyn. I talked with the patient this morning as well and she is awake and alert and conversant. She is not having any hallucinations visual or auditory at this time. She denies alcohol use. She states she has been doing her own activities at home with eating drinking, dressing herself, house activity and cleaning and still drives and is socially active with the events through the week. She has not had any recent change in medicines. There may be some element of dementia causing some of the symptoms but she still seems functional. She has a perhaps slight bladder infection and can give her some medication for that. Review of her medication list shows she is on some cholesterol medication and statins. Rarely these could cause some cognitive side effects in elderly and I could suggest her discontinuing that for a month. Otherwise following up with her primary care.
[2018-07-09 14:00] VITALS: BP 131/81
== END 2018-07-09 14:30 | disposition home or self-care (01) ==
LOC: ED 01:34
DX: G31.84 Mild cognitive impairment of uncertain or unknown etiology (principal); R44.1 Visual hallucinations; N39.0 Urinary tract infection, site not specified; R94.31 Abnormal electrocardiogram [ECG] [EKG]; I10 Essential (primary) hypertension; E78.00 Pure hypercholesterolemia, unspecified; Z95.2 Presence of prosthetic heart valve; Z79.82 Long term (current) use of aspirin
CPT/HCPCS: 36415; 70450; 80053; 81001; 82140; 82607; 83690; 83735; 84443; 84484; 85025; 93005; 99283; A9270; 80306; 80320; 81003

== ENCOUNTER 2018-08-04 03:00 | Outpatient (CLI) | payer MEDICARE, BC | END 2018-08-04 03:01 | disposition critical access hospital (66) | LOC: EMS 03:00 | PROVIDERS: ATTEND Surgery | DX: R41.0 Disorientation, unspecified (principal) | CPT/HCPCS: A0425; A0429 ==

== ENCOUNTER 2018-08-04 03:11 | Emergency (ER) | payer MEDICARE, BC ==
[2018-08-04 03:37] LABS: GLUCOSE, URINE (UA) NEGATIVE (NEGATIVE); KETONES,URINE (UA) 15 mg/dL (NEGATIVE); LEUKOCYTE ESTERASE, URINE MODERATE (NEGATIVE); NITRITE,URINE NEGATIVE (NEGATIVE); OCCULT BLOOD,URINE TRACE-INTA (NEGATIVE); PROTEIN,URINE 30 mg/dL (NEGATIVE); UROBILINOGEN,URINE 0.2 (NORMAL) E.U./dL (NORMAL)
[2018-08-04 03:39] LABS: BASOPHILS # (AUTO) 0.1 10^3/uL (0.0-0.1); BASOPHILS % (AUTO) 1.1 %; EOSINOPHILS % (AUTO) 0.6 %; HGB - HEMOGLOBIN 14.3 g/dL (12.0-16.0); LYMPHOCYTES # (AUTO) 1.4 10^3/uL (1.5-3.5); LYMPHOCYTES % (AUTO) 20.2 %; MEAN CORPUSCULAR HEMOGLOBIN 32.9 pg (27.0-31.0); MEAN CORPUSCULAR HGB CONC 35.6 g/dL (32.0-36.0); MEAN CORPUSCULAR VOLUME 92.5 fL (81.0-99.0); MEAN PLATELET VOLUME 8.2 fL (7.9-10.8); MONOCYTES # (AUTO) 0.5 10^3/uL (0.0-1.0); MONOCYTES % (AUTO) 7.4 %; NEUTROPHILS # (AUTO) 4.8 10^3/uL (1.5-6.6); NEUTROPHILS % (AUTO) 70.7 %; PLT - PLATELET COUNT 292 10^3/uL (130-450); RED BLOOD COUNT 4.35 10^6/uL (4.20-5.40); RED CELL DISTRIBUTION WIDTH 12.3 % (12.0-15.0); WHITE BLOOD COUNT 6.8 x10^3/uL (4.8-10.8)
[2018-08-04 03:45] LABS: BACTERIA,URINE Few /HPF (None Seen); BILIRUBIN,URINE NEGATIVE (NEGATIVE); CLARITY,URINE CLEAR (CLEAR); ICTOTEST,URINE NEGATIVE; RBC,URINE 0-5 /HPF (0-5); SQUAMOUS EPITHELIAL CELL,UR MOD Squamous (<= Few)
[2018-08-04 03:46] LABS: CASTS, URINE 26-50 Hyaline Casts /LPF; MUCUS,URINE Marked Strands
[2018-08-04 03:52] LABS: ALBUMIN 4.6 g/dL (3.2-5.5); ALBUMIN/GLOBULIN RATIO 1.2 (1.0-2.2); BILIRUBIN,TOTAL 1.4 mg/dL (0.2-1.0); CALCIUM 10.3 mg/dL (8.5-10.3); CREATININE 0.8 mg/dL (0.4-1.0); TOTAL PROTEIN 8.5 g/dL (6.7-8.2)
--- NOTE | 2018-08-04 03:52 | ED Physician Documentation ---
PD HPI ALTERED MENTAL STATUS - Stated complaint Stated Complaint: AMS - Chief complaint Chief Complaint: Neuro - History obtained from History obtained from: Patient, EMS - History of Present Illness Timing - onset: Chronic Timing - details: Gradual onset, Still present Quality / character: Hallucinating Associated symptoms: No: Fever, Headache Contributing factors: No: Anticoagulated, Diabetic, Cancer Basline status: Alert and oriented X 3, Ambulatory, Independent Similar symptoms before: Work up / diagnostics, Treatment Recently seen: Not recently seen - Additional information Additional information: Patient is an 83 year old female brought in by ems for insomnia and persistent delusion. Patient originally pressed her life support button because she thought someone was in the house. When medics/fire department arrived no one was there. Patient was up fully dressed and walking around. medics talked to the caregiver who stated that the patient does have some hallucinations. patient was seen in the emergency department under a month ago for the same thing. patient is otherwise awake, alert and oriented and denying any physical complaints. 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 Cardiovascular: Valve replacement - Present Medications Home Medications: Ambulatory Orders Medication Instructions Recorded Confirmed Aspirin [Children's Aspirin] 81 mg PO DAILY 08/15/13 07/06/17 Atorvastatin Calcium [Lipitor] 20 mg PO DAILY 08/15/13 07/06/17 Cholecalciferol (Vitamin D3) 400 unit PO TID 08/15/13 07/06/17 [Vitamin D-3] Metoprolol Tartrate [Lopressor] 25 mg PO BID 08/15/13 07/06/17 Multivitamin [Multivitamins] 1 each PO DAILY 08/15/13 07/06/17 hydroCHLOROthiazide [Hydrodiuril] 12.5 mg PO DAILY 08/15/13 07/06/17 Nitrofurantoin Monohyd/M-Cryst 100 mg PO BID #10 capsule 07/09/18 [Macrobid 100 mg Capsule] - Allergies Allergies/Adverse Reactions: Allergies Allergy/AdvReac Type Severity Reaction Status Date / Time losartan [Losartan] Allergy Intermediate cough Verified 08/04/18 03:31 Estrogens Allergy Mild Diaphoresis Verified 08/04/18 03:31 felodipine Allergy Mild Respiratory Verified 08/04/18 03:31 lisinopril Allergy Mild Respiratory Verified 08/04/18 03:31 - Social History Does the pt smoke?: No Smoking Status: Never smoker Does the pt drink ETOH?: Yes Does the pt have substance abuse?: No - Immunizations Immunizations are current?: Yes - POLST Patient has POLST: Yes PD ED PE NORMAL - Vitals Vital signs reviewed: Yes - General General: Alert and oriented X 3, No acute distress, Well developed/nourished - HEENT HEENT: Atraumatic, PERRL - Cardiac Cardiac: RRR - Respiratory Respiratory: No respiratory distress - Abdomen Abdomen: Soft - Derm Derm: Normal color, Warm and dry - Extremities Extremities: No deformity - Neuro Neuro: Alert and oriented X 3, No motor deficit, Normal speech Eye Opening: Spontaneous Motor: Obeys Commands Verbal: Oriented GCS Score: 15 PD ED PE EXPANDED - Psych Psych: Delusions Results - Vitals Vitals: Vital Signs - 24 hr 08/04/18 03:22 Temperature 36.5 C Heart Rate 106 H Respiratory 16 Rate Blood Pressure 180/96 H O2 Saturation 94 Oxygen O2 Source Room air - Labs Labs: Laboratory Tests 08/04/18 08/04/18 03:25 03:35 WBC 6.8 RBC 4.35 Hgb 14.3 Hct 40.2 MCV 92.5 MCH 32.9 H MCHC 35.6 RDW 12.3 Plt Count 292 MPV 8.2 Neut # (Auto) 4.8 Lymph # (Auto) 1.4 L [place] # (Auto) 0.5 Eos # (Auto) 0.0 Baso # (Auto) 0.1 Absolute Nucleated RBC 0.00 Nucleated RBC % 0.1 Urine Color YELLOW Urine Clarity CLEAR Urine pH 6.0 Ur Specific [place] 1.025 Urine Protein 30 H Urine Glucose (UA) NEGATIVE Urine Ketones 15 H Urine Occult Blood TRACE-INTA Urine Nitrite NEGATIVE Urine Bilirubin NEGATIVE Urine Urobilinogen 0.2 (NORMAL) Ur Leukocyte Esterase MODERATE H Ur Microscopic Review INDICATED Urine Culture Comments Not Reportable PD MEDICAL DECISION MAKING - ED course Complexity details: reviewed old records, reviewed results, re-evaluated patient, considered differential, d/w patient, d/w insurance consultant ED course: Patient was seen and examined at bedside. patient was awake, alert and oriented. Patient denied any acute complaints but did have a persistent delusion. patient was medically cleared and tele psych was consulted. After consultation the psychiatrist recommended inpatient psychiatry since patient was a risk to herself, since she is no longer eating and is afraid to eat. Patient did want to stay and was made involuntary. [facility] was dispatched. Patient was signed over to the morning physician pending evaluation and disposition. - Sepsis Event Vital Signs: Vital Signs - 24 hr 08/04/18 03:22 Temperature 36.5 C Heart Rate 106 H Respiratory 16 Rate Blood Pressure 180/96 H O2 Saturation 94 Oxygen O2 Source Room air Departure - Departure Clinical Impression: Delusion, Dementia
--- NOTE | 2018-08-04 05:08 | TELEPSYCH PHYS NOTE ---
Telepsych Note - CHIEF COMPLAINT/HX OF PRESENT ILLNESS Cheif Complaint and History of Present Illness: "I was scared." The patient is an 83 yo female brought to the ER by EMS. She believes that people are in her house plotting to kill her. She is not eating or sleeping. She says that can hear the people talking about her. Family reports that the patient has rapidly declined recently. She came to the ER on 07/09 because she said people were outside her house at night. She had called the police numerous times. - VIOLENCE/LEGAL/COLLATERAL Violence - Legal - Collateral: no violence or legal issue. Family reports the patient has been hallucinating for days. - PSYCHIATRIC HX/TREATMENT HX Psychiatric: Anxiety - MEDICAL HX Does the pt have a hx of MRSA?: No Eyes, Ears, Nose, Throat: None Cardiovascular: Hypertension, High cholesterol, Arrhythmia, Valve disorder Respiratory: None Skin: None Endocrine/Autoimmune: None Gastrointestinal: GERD Is Patient ?: No Urinary: None Musculoskeletal: Fatigue Blood Disorders: None - SURGICAL HX General: Appendectomy, Hiatal hernia repair Gynecologic: Oophrectomy - HOME MEDICATIONS Home Meds (as last confirmed): Patient History Medication Instructions Recorded Confirmed Aspirin [Children's Aspirin] 81 mg PO DAILY 08/15/13 07/06/17 Atorvastatin Calcium [Lipitor] 20 mg PO DAILY 08/15/13 07/06/17 Cholecalciferol (Vitamin D3) 400 unit PO TID 08/15/13 07/06/17 [Vitamin D-3] Metoprolol Tartrate [Lopressor] 25 mg PO BID 08/15/13 07/06/17 Multivitamin [Multivitamins] 1 each PO DAILY 08/15/13 07/06/17 hydroCHLOROthiazide [Hydrodiuril] 12.5 mg PO DAILY 08/15/13 07/06/17 - ALLERGIES Allergies (as last confirmed): Allergies Allergy/AdvReac Type Severity Reaction Status Date / Time losartan [Losartan] Allergy Intermediate cough Verified 08/04/18 03:31 Estrogens Allergy Mild Diaphoresis Verified 08/04/18 03:31 felodipine Allergy Mild Respiratory Verified 08/04/18 03:31 lisinopril Allergy Mild Respiratory Verified 08/04/18 03:31 - FAMILY PSYCH/SUICIDE/SOCIAL HX-MENTAL Family - Suicide - Social Hx and Mental Status Exam: Family Psych History/History of suicide: patient denies Social History: , lives alone 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 Education: college grad Mental Status Exam: Appearance and attire: dressed in hospital attire Attitude and behavior: cooperative, no PM disturbance Speech: WNL Affect and mood: Association and thought processes: linear Thought content: no SI, no HI, + paranoid delusions Perception: no AVH Sensorium, memory, and orientation: AAOx3 Intellectual functioning: average Insight and judgment: poor - PATIENT PROBLEM LIST (1) Psychosis Qualifiers: Psychosis type: unspecified psychosis type Qualified Code(s): F29 - Unspecified psychosis not due to a substance or known physiological condition - TREATMENT/PHARMACOLOGICAL RECOMMENDATION Treatment - Pharmacological - Therapy Recommendations: Treatment Recommendations: inpatient care, start antipsychotics Pharmacological: Risperdal 0.5 mg BID Therapy: supportive - TIME SPENT & PROVIDER LOCATION Telepsych consultation conducted via videoconferencing: Yes List names and roles of persons who participated in consult: Emelia Sanchez Telepsychiatry Telepsych Provider Location: [place] Time Telepsych consult began: 07:28 Time Telepsych consult completed: 07:40
[2018-08-04] MEDS ORDERED: risperiDONE 0.25 MG TABLET PO SCH (09:00)
[2018-08-04] MEDS ORDERED: METOPROLOL SUCCINATE 25 MG TABLET PO STA (09:08)
[2018-08-04] MEDS ORDERED: hydroCHLOROthiazide 25 MG TABLET PO STA ×2 (09:11→09:20)
--- NOTE | 2018-08-04 14:16 | ED Physician Documentation ---
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 Cardiovascular: Valve replacement - Present Medications Home Medications: Ambulatory Orders Medication Instructions Recorded Confirmed Aspirin [Children's Aspirin] 81 mg PO DAILY 08/15/13 07/06/17 Atorvastatin Calcium [Lipitor] 20 mg PO DAILY 08/15/13 07/06/17 Cholecalciferol (Vitamin D3) 400 unit PO TID 08/15/13 07/06/17 [Vitamin D-3] Metoprolol Tartrate [Lopressor] 25 mg PO BID 08/15/13 07/06/17 Multivitamin [Multivitamins] 1 each PO DAILY 08/15/13 07/06/17 hydroCHLOROthiazide [Hydrodiuril] 12.5 mg PO DAILY 08/15/13 07/06/17 Nitrofurantoin Monohyd/M-Cryst 100 mg PO BID #10 capsule 07/09/18 [Macrobid 100 mg Capsule] risperiDONE [RisperDAL] 0.5 mg PO BID #20 tablet 08/04/18 - Allergies Allergies/Adverse Reactions: Allergies Allergy/AdvReac Type Severity Reaction Status Date / Time losartan [Losartan] Allergy Intermediate cough Verified 08/04/18 03:31 Estrogens Allergy Mild Diaphoresis Verified 08/04/18 03:31 felodipine Allergy Mild Respiratory Verified 08/04/18 03:31 lisinopril Allergy Mild Respiratory Verified 08/04/18 03:31 - Social History Does the pt smoke?: No Smoking Status: Never smoker Does the pt drink ETOH?: Yes Does the pt have substance abuse?: No - Immunizations Immunizations are current?: Yes - POLST Patient has POLST: Yes Results - Vitals Vitals: Vital Signs - 24 hr 08/04/18 08/04/18 03:22 09:07 Temperature 36.5 C Heart Rate 106 H 104 H Respiratory 16 20 Rate Blood Pressure 180/96 H 144/67 H O2 Saturation 94 94 Oxygen O2 Source Room air - Labs Labs: Laboratory Tests 08/04/18 08/04/18 08/04/18 03:25 03:35 03:35 WBC 6.8 RBC 4.35 Hgb 14.3 Hct 40.2 MCV 92.5 MCH 32.9 H MCHC 35.6 RDW 12.3 Plt Count 292 MPV 8.2 Neut # (Auto) 4.8 Lymph # (Auto) 1.4 L [place] # (Auto) 0.5 Eos # (Auto) 0.0 Baso # (Auto) 0.1 Absolute Nucleated RBC 0.00 Nucleated RBC % 0.1 Sodium 138 Potassium 3.4 L Chloride 99 L Carbon Dioxide 25 Anion Gap 14.0 H BUN 15 Creatinine 0.8 Estimated GFR (MDRD) 69 L Glucose 141 H Calcium 10.3 Total Bilirubin 1.4 H AST 39 ALT 25 Alkaline Phosphatase 74 Total Protein 8.5 H Albumin 4.6 Globulin 3.9 Albumin/Globulin Ratio 1.2 Lipase 51 Urine Color YELLOW Urine Clarity CLEAR Urine pH 6.0 Ur Specific [place] 1.025 Urine Protein 30 H Urine Glucose (UA) NEGATIVE Urine Ketones 15 H Urine Occult Blood TRACE-INTA Urine Nitrite NEGATIVE Urine Bilirubin NEGATIVE Urine Urobilinogen 0.2 (NORMAL) Ur Leukocyte Esterase MODERATE H Urine RBC 0-5 Urine WBC 11-25 H Ur Squamous Epith Cells MOD Squamous H Urine Bacteria Few Urine Casts 26-50 Hyaline Casts Urine Mucus Marked Strands Ur Microscopic Review INDICATED Urine Culture Comments NOT INDICATED PD MEDICAL DECISION MAKING - ED course Complexity details: reviewed results, re-evaluated patient, considered differential, d/w patient ED course: 83-year-old female with early dementia has developed paranoia and hallucinations and has been calling police frequently. She has been having issues for several months. She was brought to the emergency department last night with acute hallucinations about people being after her to kill her. She was evaluated here in the emergency department by Dr. Isabel and medically cleared for psychiatric evaluation. Tele-psych was initiated and a recommendation was made for the patient to have inpatient psychiatric treatment and administration of Risperdal and 0.5 mg twice daily. The DCR came to the emergency department and was unable to detained the patient. The social insurance analyst came to the department and evaluated the patient and was able to contact family to make a reasonable plan for follow-up with the patient. The family has been considering placement for some time now and will work toward that goal. Today the patient does not have family that will be able to stay with her she does have a molecular modeler will be able to be with her at home today. We have E scripted her prescription to [facility]. - Sepsis Event Vital Signs: Vital Signs - 24 hr 08/04/18 08/04/18 03:22 09:07 Temperature 36.5 C Heart Rate 106 H 104 H Respiratory 16 20 Rate Blood Pressure 180/96 H 144/67 H O2 Saturation 94 94 Oxygen O2 Source Room air Departure - Departure Disposition: 01 Home, Self Care Clinical Impression: Delusion Dementia Qualifiers: Dementia type: unspecified type Dementia behavioral disturbance: with behavioral disturbance Qualified Code(s): F03.91 - Unspecified dementia with behavioral disturbance Condition: Stable Instructions: ED Dementia Caregiver Support, ED Confusion, ED Dementia Alzheimer Follow-Up: Víctor Rios MD [Provider Admit Priv/Credential] - Prescriptions: risperiDONE [RisperDAL] 0.5 mg PO BID #20 tablet
[2018-08-04 14:30] VITALS: BP 118/74
== END 2018-08-04 14:41 | disposition home or self-care (01) ==
LOC: EDUNIT# → ED 03:11
DX: F22 Delusional disorders (principal); F03.91 Unspecified dementia, unspecified severity, with behavioral disturbance; E78.00 Pure hypercholesterolemia, unspecified; I10 Essential (primary) hypertension; Z79.82 Long term (current) use of aspirin; Z95.2 Presence of prosthetic heart valve
CPT/HCPCS: 80053; 81001; 83690; 85025; 99283; 99284; A9270; Q3014; 81003; 87086

== ENCOUNTER 2018-08-05 21:36 | Emergency (ER) | payer MEDICARE, BC ==
[2018-08-05] MEDS ORDERED: risperiDONE 1 MG/ML SOLUTION PO STA (22:47)
--- NOTE | 2018-08-05 22:48 | ED Physician Documentation ---
PD HPI MHE - Stated complaint Stated Complaint: MHE - Chief complaint Chief Complaint: MHE - History obtained from History obtained from: Patient, Friend - History of Present Illness Primary symptom: Psychosis Timing - onset: How many months ago (2+) Contributing factors: Other (delusions of persecution) Similar symptoms before: Diagnosis (acute psychosis) Recently seen: Emergency Dept - Additional information Additional information: 83-year-old female who has had the onset of delusions of a male stocking her over the past 2 months. Her family and friends have indicated that this has been new for this patient and that these have persisted for the past 2 months. She has some memory issues but do not seem advanced in any way. She is able to recall seeing me in the emergency department yesterday. Yesterday she was in the emergency department and had evaluation by the DCR and the social research assistant as well as tele-psych. Tele-psych recommended admission to a psychiatric facility for establishment of medication for acute psychosis. The recommendation was for risperdal 0.5 mg twice daily. The patient was ultimately discharged with a friend with family to be involved in her care with the intention of placement. She was given a script for risperdal and this was supposed to be delivered to the patient's home and this did not occur. Today the patient was taken to a hotel in order to avoid the mail outside of her home. The patient has had delusions that this male is stalking her and is either kind or mean to her. Moving to the hotel did not decrease the patient's delusions. The patient escaped to the hotel with her friend to come to the em ergency department. Review of Systems Constitutional: denies: Fever, Chills, Myalgias, Fatigue Eyes: denies: Decreased vision Ears: denies: Ear pain Nose: denies: Rhinorrhea / runny nose, Congestion Throat: denies: Sore throat Cardiac: denies: Chest pain / pressure, Palpitations Respiratory: denies: Dyspnea, Cough GI: denies: Abdominal Pain, Nausea, Vomiting : reports: Dysuria Skin: denies: Rash Musculoskeletal: denies: Neck pain, Back pain, Extremity pain Neurologic: denies: Generalized weakness, Focal weakness, Numbness PD PAST MEDICAL HISTORY - Past Medical History Cardiovascular: Hypertension, High cholesterol, Arrhythmia, Valve disorder Respiratory: None Endocrine/Autoimmune: None GI: GERD : None HEENT: None Psych: Anxiety Musculoskeletal: Fatigue Derm: None - Past Surgical History Past Surgical History: Yes General: Appendectomy, Hiatal 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 Cardiovascular: Valve replacement - Present Medications Home Medications: Ambulatory Orders Medication Instructions Recorded Confirmed Aspirin [Children's Aspirin] 81 mg PO DAILY 08/15/13 08/05/18 Atorvastatin Calcium [Lipitor] 20 mg PO DAILY 08/15/13 08/05/18 Cholecalciferol (Vitamin D3) 400 unit PO TID 08/15/13 08/05/18 [Vitamin D-3] Metoprolol Tartrate [Lopressor] 25 mg PO BID 08/15/13 08/05/18 Multivitamin [Multivitamins] 1 each PO DAILY 08/15/13 08/05/18 hydroCHLOROthiazide [Hydrodiuril] 12.5 mg PO DAILY 08/15/13 08/05/18 Nitrofurantoin Monohyd/M-Cryst 100 mg PO BID #10 capsule 07/09/18 08/05/18 [Macrobid 100 mg Capsule] risperiDONE [RisperDAL] 0.5 mg PO BID #20 tablet 08/04/18 08/05/18 Levofloxacin [Levaquin] 500 mg PO DAILY #5 tablet 08/06/18 - Allergies Allergies/Adverse Reactions: Allergies Allergy/AdvReac Type Severity Reaction Status Date / Time losartan [Losartan] Allergy Intermediate cough Verified 08/05/18 21:45 Estrogens Allergy Mild Diaphoresis Verified 08/05/18 21:45 felodipine Allergy Mild Respiratory Verified 08/05/18 21:45 lisinopril Allergy Mild Respiratory Verified 08/05/18 21:45 - Social History Does the pt smoke?: No Smoking Status: Never smoker Does the pt drink ETOH?: Yes Does the pt have substance abuse?: No - Immunizations Immunizations are current?: Yes - POLST Patient has POLST: Yes PD ED PE NORMAL - Vitals Vital signs reviewed: Yes (hypertension ) - General General: Alert and oriented X 3, No acute distress, Well developed/nourished - HEENT HEENT: Atraumatic, PERRL, EOMI - Neck Neck: Supple, no meningeal sign, No bony TTP - Cardiac Cardiac: RRR, No murmur - Respiratory Respiratory: No respiratory distress, Clear bilaterally - Abdomen Abdomen: Soft, Non tender - Back Back: No CVA TTP, No spinal TTP - Derm Derm: Normal color, Warm and dry, No rash - Extremities Extremities: No deformity, No edema - Neuro Neuro: Alert and oriented X 3, 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, No motor deficit, No sensory deficit, Normal speech Eye Opening: Spontaneous Motor: Obeys Commands Verbal: Oriented GCS Score: 15 - Psych Psych: Normal mood, Normal affect Results - Vitals Vitals: Vital Signs - 24 hr 08/05/18 21:39 Temperature 36.6 C Heart Rate 97 Respiratory 16 Rate Blood Pressure 140/60 H O2 Saturation 98 Oxygen O2 Source Room air PD MEDICAL DECISION MAKING - ED course Complexity details: reviewed old records, reviewed results, re-evaluated patient, considered differential, d/w patient, d/w family ED course: 83-year-old female with persistent delusions of a male stocking her has returned to the emergency department when our plan of her medications fell through. Here in the emergency permit she is administered risperidone and Levaquin for what appears to be a urinary tract infection on her urinalysis today. She is able to sleep in the emergency department for several hours and awakens early in the morning with persistent delusions. At shift change care is turned over to Dr. Garcia. - Sepsis Event Vital Signs: Vital Signs - 24 hr 08/05/18 21:39 Temperature 36.6 C Heart Rate 97 Respiratory 16 Rate Blood Pressure 140/60 H O2 Saturation 98 Oxygen O2 Source Room air Departure - Departure Clinical Impression: Urinary tract infection Qualifiers: Urinary tract infection type: acute cystitis Hematuria presence: without hematuria Qualified Code(s): N30.00 - Acute cystitis without hematuria Psychosis Qualifiers: Psychosis type: delusional disorder Qualified Code(s): F22 - Delusional disorders Condition: Stable Instructions: Delusional Disorder, ED UTI Cystitis Female Follow-Up: Víctor Rios MD [Primary Care Provider] - Prescriptions: Levofloxacin [Levaquin] 500 mg PO DAILY #5 tablet
[2018-08-05 23:10] LABS: MUDS CUTOFF CONCENTRATIONS CUTOFF CONC BELOW:
[2018-08-05 23:13] LABS: GLUCOSE, URINE (UA) NEGATIVE (NEGATIVE); KETONES,URINE (UA) NEGATIVE (NEGATIVE); LEUKOCYTE ESTERASE, URINE TRACE (NEGATIVE); NITRITE,URINE NEGATIVE (NEGATIVE); OCCULT BLOOD,URINE TRACE-INTA (NEGATIVE); PROTEIN,URINE 30 mg/dL (NEGATIVE); UROBILINOGEN,URINE 0.2 (NORMAL) E.U./dL (NORMAL)
[2018-08-05 23:17] LABS: BILIRUBIN,URINE NEGATIVE (NEGATIVE); CLARITY,URINE HAZY (CLEAR); ICTOTEST,URINE NEGATIVE
[2018-08-05 23:17] LABS: BASOPHILS # (AUTO) 0.1 10^3/uL (0.0-0.1); BASOPHILS % (AUTO) 0.8 %; EOSINOPHILS % (AUTO) 0.6 %; HGB - HEMOGLOBIN 13.8 g/dL (12.0-16.0); LYMPHOCYTES # (AUTO) 1.4 10^3/uL (1.5-3.5); LYMPHOCYTES % (AUTO) 20.5 %; MEAN CORPUSCULAR HEMOGLOBIN 31.6 pg (27.0-31.0); MEAN CORPUSCULAR HGB CONC 33.7 g/dL (32.0-36.0); MEAN PLATELET VOLUME 8.1 fL (7.9-10.8); MONOCYTES # (AUTO) 0.5 10^3/uL (0.0-1.0); MONOCYTES % (AUTO) 7.7 %; NEUTROPHILS # (AUTO) 4.7 10^3/uL (1.5-6.6); NEUTROPHILS % (AUTO) 70.4 %; PLT - PLATELET COUNT 319 10^3/uL (130-450); RED BLOOD COUNT 4.35 10^6/uL (4.20-5.40); RED CELL DISTRIBUTION WIDTH 12.5 % (12.0-15.0); WHITE BLOOD COUNT 6.7 x10^3/uL (4.8-10.8)
[2018-08-05 23:25] LABS: AMORPHOUS SEDIMENT,UR Few /LPF; BACTERIA,URINE None Seen /HPF (None Seen); RBC,URINE 0-5 /HPF (0-5); SQUAMOUS EPITHELIAL CELL,UR FEW Squamous (<= Few)
[2018-08-05 23:26] LABS: AMPHETAMINE SCREEN,URINE NEGATIVE (NEGATIVE); BENZODIAZEPINES SCREEN, URINE NEGATIVE (NEGATIVE); COCAINE SCREEN URINE NEGATIVE (NEGATIVE); METHADONE SCREEN, URINE NEGATIVE (NEGATIVE); METHAMPHETAMINES SCREEN, URINE NEGATIVE (NEGATIVE); OPIATE SCREEN, URINE NEGATIVE (NEGATIVE); OXYCODONE SCREEN, URINE NEGATIVE (NEGATIVE); PROPOXYPHENE SCREEN, URINE NEGATIVE (NEGATIVE); TRICYCLIC ANTIDEPRESSANT,URINE NEGATIVE (NEGATIVE)
[2018-08-05 23:30] LABS: ALBUMIN 4.3 g/dL (3.2-5.5); ALBUMIN/GLOBULIN RATIO 1.1 (1.0-2.2); ALKALINE PHOSPHATASE 70 IU/L (42-121); ALT ALANINE AMINOTRANSFERASE 26 IU/L (10-60); AST ASPARTATE AMINOTRANSFERASE 40 IU/L (10-42); BILIRUBIN,TOTAL 0.6 mg/dL (0.2-1.0); BUN - BLOOD UREA NITROGEN 18 mg/dL (6-20); CALCIUM 9.9 mg/dL (8.5-10.3); CARBON DIOXIDE - CO2 29 mmol/L (21-32); CHLORIDE 101 mmol/L (101-111); CREATININE 0.9 mg/dL (0.4-1.0); GFR - MDRD 60 (>89); GLUCOSE 119 mg/dL (70-100); LIPASE 55 U/L (22-51); SODIUM 141 mmol/L (135-145); TOTAL PROTEIN 8.1 g/dL (6.7-8.2)
[2018-08-06] MEDS ORDERED: levoFLOXacin 250 MG TABLET PO STA (01:01)
[2018-08-06] MEDS ORDERED: POTASSIUM BICARB 25 MEQ TABLET PO STA (04:53)
--- NOTE | 2018-08-06 07:15 | ED Physician Documentation ---
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 Cardiovascular: Valve replacement - Present Medications Home Medications: Ambulatory Orders Medication Instructions Recorded Confirmed Aspirin [Children's Aspirin] 81 mg PO DAILY 08/15/13 08/05/18 Atorvastatin Calcium [Lipitor] 20 mg PO DAILY 08/15/13 08/05/18 Cholecalciferol (Vitamin D3) 400 unit PO TID 08/15/13 08/05/18 [Vitamin D-3] Metoprolol Tartrate [Lopressor] 25 mg PO BID 08/15/13 08/05/18 Multivitamin [Multivitamins] 1 each PO DAILY 08/15/13 08/05/18 hydroCHLOROthiazide [Hydrodiuril] 12.5 mg PO DAILY 08/15/13 08/05/18 Nitrofurantoin Monohyd/M-Cryst 100 mg PO BID #10 capsule 07/09/18 08/05/18 [Macrobid 100 mg Capsule] risperiDONE [RisperDAL] 0.5 mg PO BID #20 tablet 08/04/18 08/05/18 Levofloxacin [Levaquin] 500 mg PO DAILY #5 tablet 08/06/18 - Allergies Allergies/Adverse Reactions: Allergies Allergy/AdvReac Type Severity Reaction Status Date / Time losartan [Losartan] Allergy Intermediate cough Verified 08/05/18 21:45 Estrogens Allergy Mild Diaphoresis Verified 08/05/18 21:45 felodipine Allergy Mild Respiratory Verified 08/05/18 21:45 lisinopril Allergy Mild Respiratory Verified 08/05/18 21:45 - Social History Does the pt smoke?: No Smoking Status: Never smoker Does the pt drink ETOH?: Yes Does the pt have substance abuse?: No - Immunizations Immunizations are current?: Yes - POLST Patient has POLST: Yes Results - Vitals Vitals: Vital Signs - 24 hr 08/05/18 21:39 Temperature 36.6 C Heart Rate 97 Respiratory 16 Rate Blood Pressure 140/60 H O2 Saturation 98 Oxygen O2 Source Room air - Labs Labs: Laboratory Tests 08/05/18 08/05/18 08/05/18 23:08 23:10 23:10 WBC 6.7 RBC 4.35 Hgb 13.8 Hct 40.9 MCV 94.0 MCH 31.6 H MCHC 33.7 RDW 12.5 Plt Count 319 MPV 8.1 Neut # (Auto) 4.7 Lymph # (Auto) 1.4 L [place] # (Auto) 0.5 Eos # (Auto) 0.0 Baso # (Auto) 0.1 Absolute Nucleated RBC 0.01 Nucleated RBC % 0.1 Sodium 141 Potassium 3.2 L Chloride 101 Carbon Dioxide 29 Anion Gap 11.0 BUN 18 Creatinine 0.9 Estimated GFR (MDRD) 60 L Glucose 119 H Calcium 9.9 Total Bilirubin 0.6 AST 40 ALT 26 Alkaline Phosphatase 70 Total Protein 8.1 Albumin 4.3 Globulin 3.8 Albumin/Globulin Ratio 1.1 Lipase 55 H TSH Urine Color DARK YELLOW Urine Clarity HAZY Urine pH 6.0 Ur Specific [place] >=1.030 H Urine Protein 30 H Urine Glucose (UA) NEGATIVE Urine Ketones NEGATIVE Urine Occult Blood TRACE-INTA Urine Nitrite NEGATIVE Urine Bilirubin NEGATIVE Urine Urobilinogen 0.2 (NORMAL) Ur Leukocyte Esterase TRACE H Urine RBC 0-5 Urine WBC 11-25 H Ur Squamous Epith Cells FEW Squamous Amorphous Sediment Few Urine Bacteria None Seen Ur Microscopic Review INDICATED Urine Culture Comments INDICATED Urine Opiates Screen NEGATIVE Ur Oxycodone Screen NEGATIVE Urine Methadone Screen NEGATIVE Ur Propoxyphene Screen NEGATIVE Ur Barbiturates Screen NEGATIVE Ur Tricyclics Screen NEGATIVE Ur Phencyclidine Scrn NEGATIVE Ur Amphetamine Screen NEGATIVE U Methamphetamines Scrn NEGATIVE U Benzodiazepines Scrn NEGATIVE Urine Cocaine Screen NEGATIVE U Cannabinoids Screen NEGATIVE Ethyl Alcohol < 5.0 08/05/18 23:10 WBC RBC Hgb Hct MCV MCH MCHC RDW Plt Count MPV Neut # (Auto) Lymph # (Auto) [place] # (Auto) Eos # (Auto) Baso # (Auto) Absolute Nucleated RBC Nucleated RBC % Sodium Potassium Chloride Carbon Dioxide Anion Gap BUN Creatinine Estimated GFR (MDRD) Glucose Calcium Total Bilirubin AST ALT Alkaline Phosphatase Total Protein Albumin Globulin Albumin/Globulin Ratio Lipase TSH 1.20 Urine Color Urine Clarity Urine pH Ur Specific [place] Urine Protein Urine Glucose (UA) Urine Ketones Urine Occult Blood Urine Nitrite Urine Bilirubin Urine Urobilinogen Ur Leukocyte Esterase Urine RBC Urine WBC Ur Squamous Epith Cells Amorphous Sediment Urine Bacteria Ur Microscopic Review Urine Culture Comments Urine Opiates Screen Ur Oxycodone Screen Urine Methadone Screen Ur Propoxyphene Screen Ur Barbiturates Screen Ur Tricyclics Screen Ur Phencyclidine Scrn Ur Amphetamine Screen U Methamphetamines Scrn U Benzodiazepines Scrn Urine Cocaine Screen U Cannabinoids Screen Ethyl Alcohol PD MEDICAL DECISION MAKING - ED course ED course: assumed care 7 AM 08/06/18 83 female per turnover, she has suffered from psychosis for several months seen several times in our ER for same has CTH - neg had telepsych eval - inpt geripsych recommended but DCR came and did not feel pt needed inpt care so not placed so SW got involved and pt was dced to care of family with new rx for risperdal which has not been able to be filled / delivered yet now pt back again with same - specifically she she seems to have paranoid delusions of a man watching her brought in last night by a friend for these continued sx has had labs, +/- UTI and levaquin was started, otherwise med clear per turnover, plan is to try and get pt placed at [facility] - apparently pt has funds to pay for assisted living went to see pt she is crabby and wants to know why she is being kept waiting and why her friends haven't come to visit RRR CTAB SW to see pt there was an issue with designated DPOA but that got settled per SW, [facility] may take pt for 2 days of respite until family arrives from out of state to care for pt themselves - this doesn't really seem to be addressing the underlying issue of her psychosis but maybe should would at [facility] have two monitored days on the recommended risperdal there is ongoing concern that pt does not have a known hx of dementia and that he memory is quite sharp and so the delusions may not be 2/2 dementia and that geripsych might be a better option - but that is what telepsych rec already and then DCR came and did not feel necessary so did not place pt per notes [facility] declined to accept pt to memory care as this is not dementia rec inpt mental health SW called several inpt mental health ([facility], [facility], [place]) but no beds or do no accept POA signing pt in SW has left for the day I called [facility] at 915 PM and they do have beds and will allow POA to sign pt in - intake req fax face sheet, clinicals, NN, SW notes, telepsych from, last visit, [facility] from last visit, POA to them at will req [employer]AD[employer] CLEANER to do this and turned care of pt over to next shift Dr Hunter - Sepsis Event Vital Signs: Vital Signs - 24 hr 08/05/18 21:39 Temperature 36.6 C Heart Rate 97 Respiratory 16 Rate Blood Pressure 140/60 H O2 Saturation 98 Oxygen O2 Source Room air Departure - Departure Clinical Impression: Urinary tract infection Qualifiers: Urinary tract infection type: acute cystitis Hematuria presence: without hematuria Qualified Code(s): N30.00 - Acute cystitis without hematuria Psychosis Qualifiers: Psychosis type: delusional disorder Qualified Code(s): F22 - Delusional disorders Condition: Stable Instructions: Delusional Disorder, ED UTI Cystitis Female Follow-Up: Víctor Rios MD [Primary Care Provider] - Prescriptions: Levofloxacin [Levaquin] 500 mg PO DAILY #5 tablet
[2018-08-06] MEDS ORDERED: risperiDONE 0.25 MG TABLET PO STA (07:30)
--- NOTE | 2018-08-07 08:22 | ED Physician Documentation ---
ED Addendum - Addendum Addendum: 08/07/18 08:20 Patient continues to have persistent delusions and lacks decision making capacity at this time. Does not have clear consultant [employer] and [employer]. vice president [employer] (ex ) on reality or consequences of her decisions or lack of decisions.
[2018-08-07] MEDS ORDERED: ACETAMINOPHEN 325 MG TABLET PO STA (15:33)
--- NOTE | 2018-08-07 15:33 | ED Physician Documentation ---
ED Addendum - Addendum Addendum: 08/07/18 15:33 She was accepted by Dr. Ni to [facility] on August 07 around 3 to 3:30 PM and cobras were completed. Patient has been stable.
[2018-08-07 19:50] VITALS: BP 137/78
[2018-08-07] MEDS ORDERED: risperiDONE 0.25 MG TABLET PO STA (20:17)
== END 2018-08-07 20:40 ==
LOC: ED 21:36
DX: F22 Delusional disorders (principal); N30.00 Acute cystitis without hematuria; I10 Essential (primary) hypertension; E78.00 Pure hypercholesterolemia, unspecified; Z95.2 Presence of prosthetic heart valve; Z79.82 Long term (current) use of aspirin
CPT/HCPCS: 36415; 80053; 81001; 83690; 84132; 84443; 85025; 87086; 99283; 99284; A9270; 80306; 80320; 81003